=== PATIENT | male | born 1935 | race Caucasian/White ===

== ENCOUNTER 2018-08-19 09:56 | Observation (INO) | payer MEDICARE, BC ==
[~2018-08-19] VITALS: Ht 188 cm; Wt 106.0 kg
[2018-08-19] VITALS (23 sets, daily range): BP systolic 113–140; BP diastolic 55–75; PULSE 52–78; RESP 11–19; Ht 188 cm; Wt 106.0 kg
[~2018-08-19 09:56] MED LIST: CEFAZOLIN 1 GM INJ ONE; DICY10CA40; DOXA4TAB2; ESOM40CA; FELO5TAB; FLUT16SP24; SEVOFLURANE 15 MIN ONE
[2018-08-19] MEDS ORDERED: LACTATED RINGER'S 1,000 ML IV ONE (10:00)
[2018-08-19] MEDS ORDERED: CEFAZOLIN 2 GM/50 ML (PMX) 50 ML IVPB ONE (10:00)
[2018-08-19] MEDS ORDERED: DOXA4TAB2 PO (10:41)
[2018-08-19] MEDS ORDERED: FAMO20TA18 PO (10:42)
[2018-08-19] MEDS ORDERED: FELO5TAB35 PO (10:42)
--- NOTE | 2018-08-19 11:40 | PREAC ---
Date/Time of Note Date/Time of Note DATE: 08/19/18 TIME: 11:38 Anesthesia Eval and Record Evaluation Time Pre-Procedure Interview DATE: 08/19/18 TIME: 11:38 Age 83 Sex male NPO: 8 hrs Preoperative diagnosis L4-5 lumbar stenosis Planned procedure L4, L5 lumbar decompression, possible microdiscectomy Past Medical History Past Medical History: Includes Cardio: HTN Surgery & Anesthesia Issues No known issue Meds Anticoagulation: No Beta Janette within 24 hr: No Reason Beta Janette not given: Pt. not on B-Janette Reported Medications Famotidine* (Famotidine*) 20 Mg Tablet, 20 MG PO DAILY, #30 TAB 08/19/18 Felodipine* (Felodipine*) 5 Mg Tab.sr.24h, 5 MG PO QAM, TAB.SA 08/19/18 Doxazosin Mesylate* (Cardura*) 4 Mg Tablet, 4 MG PO BID, #60 TAB 08/19/18 Discontinued Reported Medications Fluticasone Propionate* (Flonase* Nasal) 16 Gm [place].susp 06/14/10 Dicyclomine HCl (Dicyclomine HCl) 10 Mg Capsule 06/14/10 Esomeprazole Mag Trihydrate (Nexium) 40 Mg Capsule.dr 06/14/10 Doxazosin Mesylate* (Cardura*) 4 Mg Tablet 06/14/10 Felodipine (Plendil) 5 Mg Tab.sr.24h 06/14/10 Meds reviewed: Yes Allergies Coded Allergies: No Known Drug Allergy (Verified Allergy, Unknown, 06/14/10) acetaminophen (Verified Adverse Reaction, Mild, 08/19/18) ibuprofen (Verified Adverse Reaction, Mild, 08/19/18) mesalamine (Verified Adverse Reaction, Mild, 08/19/18) aspirin (Verified Adverse Reaction, Unknown, 08/19/18) Allergies Reviewed: Yes Labs/Studies Labs Reviewed: Reviewed by anesthesiologist test: N/A Pre-procedure Exam Last vitals Vital Signs Date Temp Pulse Resp B/P (MAP) Pulse Ox O2 O2 Flow FiO2 Time Delivery Rate 08/19/18 97.9 58 16 120/55 97 Room Air 11:30 (76) Airway: Adequate mouth opening Mallampati: Mallampati II Teeth: Normal Lung: Normal Heart: Normal ASA Physical Status ASA physical status: 2 Emergency: None Planned Anesthetic General/MAC: ETT Planned Pain Management Parenteral pain med Pre-operative Attestations Prior to commencing anesthesia and surgery, the patient was re-evaluated, there was verification of: *The patient's identity *The results of appropriate recent lab work and preoperative vital signs *The above evaluation not changing prior to induction *Anesthetic plan, risk benefits, alternative and complications discussed with patient/family; questions answered; patient/family understands, accepts and wis hes to proceed. ANKITA HERR MD August 19, 2018 11:40
[2018-08-19] MEDS ORDERED: GLYCOPYRROLATE 0.4 MG INJ ONE ×3 (11:41→11:56)
[2018-08-19] MEDS ORDERED: PROPOFOL 20 ML ONE (11:41)
[2018-08-19] MEDS ORDERED: NEOSTIGMINE 3 MG/3 ML SYRINGE ONE ×2 (11:41→11:56)
[2018-08-19] MEDS ORDERED: SUCCINYLCHOLINE CHLORIDE 100 MG/5 ML SYG IV ONE (11:41)
[2018-08-19] MEDS ORDERED: LIDOCAINE 2% (SDV) 5 ML INJ ONE (11:41)
[2018-08-19] MEDS ORDERED: ROCURONIUM 50 MG INJ ONE ×2 (11:41→11:56)
[2018-08-19] MEDS ORDERED: MEPERIDINE 100 MG INJ ONE (11:42)
[2018-08-19] MEDS ORDERED: BUPIVACAINE 0.25%/EPI (SDV) 30 ML INJ ONE (11:52)
[2018-08-19] MEDS ORDERED: THROMBIN 5000 UNIT VIAL ONE (11:52)
[2018-08-19] MEDS ORDERED: GELATIN SIZE 100 SPONGE ONE (11:52)
[2018-08-19] MEDS ORDERED: CA CHLORIDE 10% 10 ML SYRINGE ONE (11:53)
[2018-08-19] MEDS ORDERED: HEPARIN 1000 UNITS/ML 10 ML INJ ONE (11:53)
[2018-08-19] MEDS ORDERED: POLYMYXIN/BACITRACIN 1L IRRIG ONE (11:53)
--- NOTE | 2018-08-19 12:16 | HPN ---
Date/Time of Note Date/Time of Note DATE: 08/19/18 TIME: 12:16 Interval H&P Admission Note Pt. seen H&P reviewed: No system changes DAXA BACA PA-C August 19, 2018 12:16
[2018-08-19] MEDS ORDERED: ONDANSETRON 4 MG INJ IV PRN ×2 (12:30→14:30)
[2018-08-19] MEDS ORDERED: DIPHENHYDRAMINE 50 MG INJ IV PRN ×2 (12:30→14:30)
[2018-08-19] MEDS ORDERED: AL HYDROX/MG HYDROX/SIMETH 30 ML CUP PO PRN (12:30)
[2018-08-19] MEDS ORDERED: CEPASTAT LOZENGE MT PRN (12:30)
[2018-08-19] MEDS ORDERED: ACETAMINOPHEN 325 MG TAB PO PRN (12:30)
[2018-08-19] MEDS ORDERED: NALOXONE (0.4 MG/ML) INJ IV PRN (12:30)
[2018-08-19] MEDS ORDERED: BISACODYL 10 MG SUPP PR PRN (12:30)
[2018-08-19] MEDS ORDERED: DIPHENHYDRAMINE 25 MG CAP PO PRN (12:30)
[2018-08-19] MEDS ORDERED: ATROPINE 1 MG/10 ML SYRINGE ONE (13:54)
[2018-08-19] MEDS ORDERED: EPHEDrine 25 MG/5 ML SYG ONE (13:54)
[2018-08-19] MEDS ORDERED: BUPIVACAINE 0.25% (MPF) 30 ML INJ ONE (13:58)
[2018-08-19] MEDS ORDERED: ONDANSETRON 4 MG INJ ONE (14:13)
[2018-08-19] MEDS ORDERED: EPHEDrine 25 MG/5 ML SYG IV PRN (14:30)
[2018-08-19] MEDS ORDERED: HYDROmorphONE 1 MG/5 ML IV SYRINGE IV PRN ×3 (14:30)
[2018-08-19] MEDS ORDERED: hydrALAzine 20 MG INJ IV PRN (14:30)
[2018-08-19] MEDS ORDERED: MEPERIDINE 25 MG INJ IV PRN (14:30)
[2018-08-19] MEDS ORDERED: LABETALOL HCL 20MG INJ IV PRN (14:30)
[2018-08-19] MEDS ORDERED: FENTAnyl 50 MCG/ML VIAL IV PRN ×3 (14:30)
[2018-08-19] MEDS ORDERED: MIDAZOLAM 1 MG/ML 2 ML INJ IV PRN (14:30)
[2018-08-19] MEDS ORDERED: METOCLOPRAMIDE 10 MG INJ IV PRN (14:30)
--- NOTE | 2018-08-19 15:22 | SIPON ---
Date/Time of Note Date/Time of Note DATE: 08/19/18 TIME: 15:21 Operative Report Preoperative Diagnosis L4-5 stenosis Postoperative Diagnosis L4-5 stenosis Operation/Procedure Performed L4-5 decompression Surgeon see signature line geriatric assistant Marcy Anesthesia: general Estimated blood loss: 10 - 50 ml's Transfusion Required none Specimen Cyst Grafts/Implants none Complications none MOI PLAZA MD August 19, 2018 15:22
[2018-08-19] MEDS: D5W-0.45 NACL + KCL 20 MEQ 1,000 ML IV SCH (16:39)
--- NOTE | 2018-08-19 16:45 | PAC ---
Date/Time of Note Date/Time of Note DATE: 08/19/18 TIME: 16:45 Post-Anesthesia Notes Post-Anesthesia Note Last documented vital signs Vital Signs Date Temp Pulse Resp B/P (MAP) Pulse Ox O2 O2 Flow FiO2 Time Delivery Rate 08/19/18 13 139/61 94 Room Air 16:13 (87) 08/19/18 52 15:54 08/19/18 6.0 14:48 08/19/18 98.2 14:47 Activity: WNL Respiratory function: WNL Cardiovascular function: WNL Mental status: Baseline Pain reasonably controlled: Yes Hydration appropriate: Yes Nausea/Vomiting absent: Yes Comments BT: 98.2 ANKITA HERR MD August 19, 2018 16:45
--- NOTE | 2018-08-19 17:17 | OPR ---
DATE OF OPERATION: 08/19/2018 PREOPERATIVE DIAGNOSES: Left L4-5 stenosis with radiculopathy. 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 PRIMARY SURGEON: Hernandez Nguyễn MD LAB ANALYST: Vicenta Vidal PA-C NEED FOR VETERINARY MEDICINE DOCTOR: During this spinal surgical procedure, my educational assistant teacher was used to retract and protect the spinal nerves and dural sac. My educational assistant teacher also employed the suction catheters to ev acuate blood from the surgical field to improve visualization of the neural structures. The assistan t was medically necessary to facilitate the completion of the surgery in a safe and expeditious [facility]. [facility] regulations, as well as hospital bylaws, preclude the use of non-licensed [facility] care personnel, such as operating room technicians, to perform these functions. OPERATION PERFORMED: 1. Left L4-L5 decompression with removal of intraspinal extradural cyst. 2. Use of operative microscope. 3. Lateral localizing film x2. 4. Intraoperative neuromonitoring. FINDINGS: Neuromonitoring at the start of the case revealed left L4 amplitude down 10%, left L5 down 40%, right L5 down 10%, left S1 down 20%. The patient had thickened ligamentum flavum with an intra ligamentous cyst adherent to the dura. ESTIMATED BLOOD LOSS: Less than 30 mL. DRAINS: None. SPECIMENS: Cyst. COMPLICATIONS OF PROCEDURES: None. ANESTHESIOLOGIST: Dr. Negron. TYPE OF ANESTHESIA: General. INDICATIONS FOR PROCEDURE: This is an 83-year-old gentleman with left lumbar radiculopathy in the se tting of an L4-L5 anterolisthesis and stenosis. He failed nonoperative measures; therefore was recom mended he undergo the above procedure. Preoperatively, we discussed risks, benefits, and alternative s. He understood and wished to proceed. DESCRIPTION OF PROCEDURE IN DETAIL: The patient identified in the preoperative holding area, given A ncef antibiotic, taken to the operating room where he was successfully placed under general anesthesi a. Neuromonitoring leads were placed. Sequential compressive devices were applied. Remote intraope rative neuromonitoring was performed by Dr. Ramos to include SSEP, MEP, and EMG, performed by Stealz. Neuromonitoring started at 12 o'clock and ended at 1430 with incision time being 1:00 p.m. The patient was placed on the operating table in prone position over a Salvador frame. All bony prominences were well padded. The back was then prepped and draped in the usual sterile fashion. S uday needles were placed and lateral localizing films obtained to confirm the correct levels. Once this was confirmed, I injected skin, subcutaneous tissue, and paraspinal musculature with 0.25% Portillo ine and epinephrine. Incision was then made over the L4-5 level. Incision was taken down to dorsal fascia, which was incised with Bovie cautery. I subperiosteally dissected at L4 and L5 lamina. Face t was identified. A Sary retractor was placed. Kerrison was placed under the L4 lamina and repeat lateral film obtained to confirm the correct level. Microscope was then brought in and a left-sided hemilaminotomy, partial medial facetectomy, and foraminotomy were then performed. Ligamentum flavum was identified. I exposed this and removed it from the superior lamina, inferior lamina and the med ial aspects of the canal. I lifted this up to identify the dura and identified adherent ligamentum t o the dura, which appeared to be cystic in nature. I was able to use a curet to free this from the d ura and remove this and sent this off as a specimen. Once the intraspinal extradural cyst was remove d, I completed the decompression and completed the facetectomy and removal of thickened ligamentum fl avum. This allowed the L5 nerve root to be completely free and mobile. At this point, nerve signals returned to normal. I examined the annulus and there was a bulge, which was likely due to the disk degeneration. There is no roma herniation and therefore elected not to enter the disk space. I the n irrigated the wound. Hemostasis was achieved. Valsalva maneuver was performed and there was no le ak of CSF. PPP and thrombin was injected over the dura for hemostatic purposes. Plain Marcaine was injected in the paraspinal musculature and tissue. Retractors were removed. Microscope was taken of f the field. The fascia was closed with #1 Vicryl stitch. I closed subcutaneous tissue with a 2-0 V icryl stitch. A 4-0 Monocryl closure was then performed. Dermabond was then applied. The patient w as awakened from anesthesia and taken to the recovery room in stable condition. Lap, sponge, and ins trument counts were correct x2. There were no apparent complications during the procedure. The patient will be admitted to the orthopedic babin for routine postoperative care to include pain co ntrol, neurovascular checks, antibiotics, and physical therapy. Dictated By: HERNANDEZ DA SILVA/TIMI Conf#: [id number] DID#: [id number] CC: VICENTA VIDAL;*EndCC*
--- NOTE | 2018-08-19 18:03 | CONS ---
DATE OF ADMISSION: 08/19/2018 DATE OF CONSULTATION: TYPE OF CONSULTATION: Postoperative medical. Thank you very much, Dr. Nguyễn, for allowing me to evaluate this 83-year-old male who just underw ent lumbar back surgery. HISTORICAL EVENTS: As you well know, this patient had unrelenting back and related left lower extrem ity pain as far back as 2014. He did undergo conservative therapy including epidural injections with only temporary improvement. Because of continued pain, he elected to proceed with surgery. Postope ratively, he is reasonably comfortable with only mild little low back pain, denying cough, wheezing, shortness of breath, nausea, vomiting, abdominal or chest pain. PAST MEDICAL HISTORY: Includes: 1. Hypertension. 2. Sleep apnea. 3. History of gastroesophageal reflux. 4. Prostatism. 5. Partial knee replacement (right). 6. Tarsal tunnel release. 7. Undergoing stress study about a year and a half or 2 ago. This was unrevealing. He is being fol lowed for a "heart murmur." MEDICATIONS: 1. Plendil. 2. Cardura. 3. Pepcid. 4. Oxycodone. 5. Zolpidem. ALLERGIES: 1. LISINOPRIL. 2. TYLENOL. 3. ASPIRIN. SOCIAL HISTORY: Audio Visual Tech, , nonsmoker, nondrinker. PHYSICAL EXAMINATION: GENERAL: [place] male in no acute distress. VITAL SIGNS: BP 122/80, pulse 70, respirations were 18. He was afebrile. HEENT: Eyes: Extraocular muscles were full. Nose, mouth and throat are normal. NECK: Supple. There was no jugular venous distention, thyroid enlargement or adenopathy. Carotids are 2+. LUNGS: Clear. HEART: Rhythm regular. No murmur. No third or fourth sound. ABDOMEN: Nontender. Liver and spleen were not palpable. No mass or tenderness were noted. EXTREMITIES: No edema. Calves are nontender. Pulses are 2+. NEUROLOGIC: No lateralizing motor weakness. IMPRESSION: 1. Stable postop lumbar back surgery. 2. History of hypertension. We will continue with antihypertensive therapy. 3. We will follow daily for signs and symptoms of thromboembolic disease. Dictated By: ODETTE GIBSON/TIMI Conf#: [id number] DID#: [id number] CC: MOI NGUYỄN MD; CHARITO KRISHNAN MD;*[facility]*
[2018-08-19] MEDS: FELODIPINE (ER) 5 MG TAB PO SCH (18:18)
[2018-08-19] MEDS: oxyCODONE 5 MG TAB PO PRN ×2 (18:31→22:19)
[2018-08-19] MEDS: DOXAZOSIN 4 MG TAB PO SCH (20:58)
[2018-08-19] MEDS: DOCUSATE SODIUM 100 MG CAP PO SCH (20:58)
[2018-08-19] MEDS ORDERED: DOXAZOSIN 2 MG TAB PO SCH (21:00)
[2018-08-19] MEDS ORDERED: FAMOTIDINE 20 MG TAB PO SCH (21:00)
[2018-08-20 00:04] VITALS: BP 121/62; PULSE 65; RESP 16
[2018-08-20 03:30] VITALS: BP 138/64; PULSE 70; RESP 18
[2018-08-20] MEDS: D5W-0.45 NACL + KCL 20 MEQ 1,000 ML IV SCH ×2 (03:32→12:34)
[2018-08-20] MEDS: oxyCODONE 5 MG TAB PO PRN ×3 (03:34→15:01)
[2018-08-20 07:26] VITALS: BP 127/62; PULSE 71; RESP 18
--- NOTE | 2018-08-20 08:28 | CONS ---
Assessment/Plan Assessment/Plan Assessment/Plan (Daily) 1. Doing well post op lumbar back surgery 2. Urinary retention post op with bladder scan revealing 800cc->london placed, cardura continued. Will remove london after pt and reeval. 3. GERD, quiescent, will change pepcid to bid 4. Labs rev Consultation Date/Type/Reason Admit Date/Time August 19, 2018 at 16:54 Initial Consult Date Date/Time of Note DATE: 08/20/18 TIME: 08:26 Detailed Summary Respiratory: No cough, No shortness of breath Cardiovascular: No chest pain Gastrointestinal: other (mild bloating) Genitourinary: other (london in place) Musculoskeletal: back pain (mild) Exam/Review of Systems Exam Vitals Vital Signs Date Temp Pulse Resp B/P (MAP) Pulse Ox O2 O2 Flow FiO2 Time Delivery Rate 08/20/18 98.7 71 18 127/62 91 Room Air 07:26 (83) 08/19/18 6.0 14:48 Intake and Output 08/19/18 08/19/18 08/20/18 1515:00 23:00 07:00 IntakeIntake Total 700 ml 1300 ml OutputOutput Total 20 ml 2400 ml BalanceBalance 680 ml -1100 ml Neck: No jvd Respiratory: clear to auscultation Cardiovascular: regular rate and rhythm, nl pulses Gastrointestinal: soft Extremities: No edema, No tenderness Results Result Diagram: 08/20/18 0422 08/20/18 0422 Results 24hrs Laboratory Tests Test 08/20/18 04:22 08/20/18 06:32 White Blood Count 6.8 Red Blood Count 4.14 L Hemoglobin 12.4 L Hematocrit 36.9 L Mean Corpuscular Volume 89.1 Mean Corpuscular Hemoglobin 30.0 Mean Corpuscular Hemoglobin Concent 33.6 Red Cell Distribution Width 13.0 Platelet Count 168 Mean Platelet Volume 10.3 Immature Granulocytes % 0.300 Neutrophils % 77.9 H Lymphocytes % 10.4 L Monocytes % 10.1 Eosinophils % 0.9 Basophils % 0.4 Nucleated Red Blood Cells % 0.0 Immature Granulocytes # 0.020 Neutrophils # 5.3 Lymphocytes # 0.7 L Monocytes # 0.7 Eosinophils # 0.1 Basophils # 0.0 Nucleated Red Blood Cells # 0.0 Sodium Level 139 Potassium Level 4.2 Chloride Level 105 Carbon Dioxide Level 28 Anion Gap 6 Blood Urea Nitrogen 12 Creatinine 0.94 Est Glomerular Filtrat Rate mL/min Glucose Level 116 Calcium Level 8.4 Magnesium Level 2.2 Lab Scanned Report REFERENCE LAB Medications Medication Current Medications Potassium Chloride/Dextrose/ Sod Cl 1,000 ml @ 100 mls/hr Q10H IV Last administered on 08/20/18 03:32; Admin Dose 100 MLS/HR; Start 08/19/18 at 14:30 Hydromorphone HCl (Dilaudid) 0.2 mg Q1H PRN IV .BREAKTHROUGH PAIN; Start 08/19/18 at 12:30 Ondansetron HCl (Zofran Inj) 4 mg Q6H PRN IV NAUSEA/VOMITING; Start 08/19/18 at 12:30 Bisacodyl (Dulcolax Supp) 10 mg DAILY PRN ID .CONSTIPATION; Start 08/19/18 at 12:30 Docusate Sodium (Colace) 100 mg BID PO Last administered on 08/19/18at 20:58; Admin Dose 100 MG; Start 08/19/18 at 21:00 Al Hydrox/Mg Hydrox/Simethicone (Mag-Al Plus) 15 ml Q6H PRN PO .CONSTIPATION /DYSPEPSIA; Start 08/19/18 at 12:30 Phenol (Cepastat Lozenge) 1 lozenge PRN PRN MT .SORE THROAT; Start 08/19/18 at 12:30 Diphenhydramine HCl (Benadryl) 25 mg Q6H PRN PO .ITCHING; Start 08/19/18 at 1 2:30 Diphenhydramine HCl (Benadryl) 25 mg Q6H PRN IV .ITCHING; Start 08/19/18 at 12:30 Naloxone HCl (Narcan) 0.2 mg Q2M PRN IV .RR 8 BREATHS/MIN OR LESS; Start 08/19/18 at 12:30 Oxycodone HCl (Roxicodone) 5 mg Q4H PRN PO MODERATE PAIN LEVEL 4-6 Last administered on 08/20/18at 03:34; Admin Dose 5 MG; Start 08/19/18 at 12:30 Doxazosin Mesylate (Cardura) 4 mg BID PO Last administered on 08/19/18at 20:58; Admin Dose 4 MG; Start 08/19/18 at 21:00 Famotidine (Pepcid) 20 mg DAILY PO ; Start 08/20/18 at 09:00 Felodipine (Plendil) 5 mg QAM PO ; Start 08/19/18 at 18:30 ODETTE DELGADILLO MD August 20, 2018 08:28
[2018-08-20] MEDS: FELODIPINE (ER) 5 MG TAB PO SCH (08:58)
[2018-08-20] MEDS: DOXAZOSIN 4 MG TAB PO SCH (08:59)
[2018-08-20] MEDS: DOCUSATE SODIUM 100 MG CAP PO SCH (08:59)
[2018-08-20] MEDS ORDERED: FELODIPINE (ER) 5 MG TAB PO SCH (09:00)
[2018-08-20] MEDS ORDERED: FAMOTIDINE 20 MG TAB PO SCH ×2 (09:00)
[2018-08-20] MEDS: HYDROmorphONE 0.5 MG/0.5 ML SYG IV PRN ×2 (10:30→16:18)
--- NOTE | 2018-08-20 12:14 | PN ---
Date/Time of Note Date/Time of Note DATE: 08/20/18 TIME: 12:10 Assessment/Plan Lines/Catheters IV Catheter Type (from Nrsg): Peripheral IV Thomas in Place (from Nrsg): Yes Assessment/Plan Assessment/Plan POD #1 s/p lumbar decompression ambulate, PT pain control urinary retention - history of prostate issues, may be 2/2 medications, per Dr. Agosto, to re-eval with bladder scan after PT today if patient is able to urinate and pain controlled on PO meds and cleared by PT, may be D/C later today Subjective 24 Hr Interval Summary pt c/o post-operative back pain left leg pain improved compared to before surgery pain suboptimally controlled on oxycodone 5mg but dilaudid helps c/o urinary retention Exam/Review of Systems Vital Signs Vitals Vital Signs Date Temp Pulse Resp B/P (MAP) Pulse Ox O2 O2 Flow FiO2 Time Delivery Rate 08/20/18 98.7 71 18 127/62 91 Room Air 07:26 (83) 08/19/18 6.0 14:48 Intake and Output 08/19/18 08/19/18 08/20/18 1515:00 23:00 07:00 IntakeIntake Total 700 ml 1300 ml OutputOutput Total 20 ml 2400 ml BalanceBalance 680 ml -1100 ml Exam Free Text/Dictation AOx3 exam unchanged incision c/d/i comfortable Results Result Diagram: 08/20/18 0422 08/20/18 0422 DAXA BACA PA-C August 20, 2018 12:14
[2018-08-20 15:11] VITALS: BP 126/62; PULSE 76; RESP 18
--- NOTE | 2018-08-21 07:46 | DS ---
Date/Time of Note Date/Time of Note DATE: 08/21/18 TIME: 07:46 Discharge Summary Admission/Discharge Info Admit Date/Time August 19, 2018 at 16:54 Discharge Date/Time August 20, 2018 at 17:10 Discharge Diagnosis Status post lumbar decompression Patient Condition: Good Procedures Lumbar decompression Hospital Course Patient was admitted to the orthopedic babin after undergoing a lumbar decompression. By postoperative day 1 he was deemed stable for discharge with follow-up arranged with the undersigned. His postoperative course was uncomplicated. Home Meds Reported Medications Famotidine* (Famotidine*) 20 Mg Tablet, 20 MG PO DAILY, #30 TAB 08/19/18 Felodipine* (Felodipine*) 5 Mg Tab.sr.24h, 5 MG PO QAM, TAB.SA 08/19/18 Doxazosin Mesylate* (Cardura*) 4 Mg Tablet, 4 MG PO BID, #60 TAB 08/19/18 Discontinued Reported Medications Fluticasone Propionate* (Flonase* Nasal) 16 Gm [place].susp 06/14/10 Dicyclomine HCl (Dicyclomine HCl) 10 Mg Capsule 06/14/10 Esomeprazole Mag Trihydrate (Nexium) 40 Mg Capsule. 06/14/10 Doxazosin Mesylate* (Cardura*) 4 Mg Tablet 06/14/10 Felodipine (Plendil) 5 Mg Tab.sr.24h 06/14/10 Primary Care Provider Not On Staff Doctor Pending Labs Laboratory Tests Test 08/20/18 09:00 Urine Color STRAW (YELLOW) Urine Clarity CLEAR (CLEAR) Urine pH 8.0 (5.0-9.0) Urine Specific [place] 1.004 (1.003-1.030) Urine Ketones NEGATIVE mg/dL (NEGATIVE) Urine Nitrite NEGATIVE mg/dL (NEGATIVE) Urine Bilirubin NEGATIVE mg/dL (NEGATIVE) Urine Urobilinogen NEGATIVE mg/dL (NEGATIVE) Urine Leukocyte Esterase NEGATIVE Elizabeth/ul Urine Microscopic RBC 2 /HPF (0-5) Urine Microscopic WBC 1 /HPF (0-5) Urine Hemoglobin 2+ mg/dL (NEGATIVE) Urine Glucose NEGATIVE mg/dL (NEGATIVE) Urine Total Protein NEGATIVE mg/dl (NEGATIVE) MOI PLAZA MD August 21, 2018 07:46
== END 2018-08-20 17:10 | disposition home or self-care (01) ==
LOC: SDS 09:56 → MS1 16:23 → SDS 16:30 → REC 16:54 → MS1 17:27
PROVIDERS: ADMIT Specialist; ATTEND Specialist
DX: M48.061 Spinal stenosis, lumbar region without neurogenic claudication (principal); M54.16 Radiculopathy, lumbar region; G96.19 Other disorders of meninges, not elsewhere classified; I10 Essential (primary) hypertension; G47.30 Sleep apnea, unspecified; K21.9 Gastro-esophageal reflux disease without esophagitis
CPT/HCPCS: 63047; 72020; 80048; 81001; 83735; 85025; 86999; 87086; 88304; 97116; 97161; 97530; G0378; J0461; J0690; J1170; J1644; J2175; J2405; J2710; J3010; J3480